=== PATIENT | female | born 1970 | race Caucasian/White ===

== ENCOUNTER → 2017-01-31 | Outpatient (CLI) | payer OTHER ==
[~2017-01-31] MED LIST: ASPI81TA28 PO; B-COTAB18 PO; CHOL1000 PO; LEVO100T7 PO; LISI-725 PO; METF750T PO; NIAC500T8 PO; VSNOPS OP
--- NOTE | 2017-02-02 12:34 | MAMMOGRAPHY REPORT ---
BILATERAL DIGITAL SCREENING MAMMOGRAM TOMOSYNTHESIS WITH CAD: 01/31/2017 CLINICAL HISTORY: Routine screening. Patient has no complaints. TECHNIQUE: Breast tomosynthesis in addition to standard 2D mammography was performed. Current study was also evaluated with a Computer Aided Detection (CAD) system. COMPARISON: Comparison is made to exams dated: 01/29/2016 mammogram, 01/27/2015 mammogram, 01/24/2014 m ammogram, 01/23/2013 mammogram, 01/21/2012 mammogram, and 01/11/2011 mammogram - [facility] enter. BREAST COMPOSITION: There are scattered areas of fibroglandular density in both breasts. FINDINGS: There is an 11 mm focal asymmetry in the upper outer anterior left breast for which additi onal spot compression tomosynthesis views and targeted ultrasound are recommended. There are benign-appearing round and rim calcifications in the right breast. No other suspicious mas s, architectural distortion or cluster of microcalcifications is seen. IMPRESSION: ACR BI-RADS CATEGORY 0: INCOMPLETE EVALUATION: NEED ADDITIONAL IMAGING EVALUATION The 11 mm focal asymmetry in the left breast needs additional evaluation. The patient will be called to schedule an appointment. Approximately 10% of breast cancers are not detected with mammography. A negative mammographic report should not delay biopsy if a clinically suggestive mass is present. Christel Jacob M.D. ay/:01/31/2017 16:49:33 Labeling Specialist: Bee GAYTAN(Rachael)(Mu)(BD), [facility] letter sent: Addl Imaging 0 BI-RADS Code: ACR BI-RADS Category 0: Incomplete Evaluation: Need Additional Imaging Evaluation
== END | disposition home or self-care (01) ==
LOC: C.MAMM 09:10
PROVIDERS: ATTEND Family Medicine
DX: Z12.31 Encounter for screening mammogram for malignant neoplasm of breast (principal); R92.8 Other abnormal and inconclusive findings on diagnostic imaging of breast

== ENCOUNTER → 2017-02-07 | Outpatient (CLI) | payer OTHER ==
--- NOTE | 2017-02-07 14:31 | MAMMOGRAPHY REPORT ---
UNILATERAL LEFT DIGITAL DIAGNOSTIC MAMMOGRAM TOMOSYNTHESIS AND TARGETED LEFT ULTRASOUND: 02/07/2017 CLINICAL HISTORY: 47-year-old woman called back from screening mammography for an 11mm focal asymmetr y in the upper outer anterior left breast. Family history of breast cancer = paternal grandmother an d aunt. TECHNIQUE: Spot compression left CC and MLO to the digital and tomosynthesis images were obtained. COMPARISON: Comparison is made to exams dated: 01/31/2017 mammogram, 01/29/2016 mammogram, 01/27/2015 ma mmogram, 01/24/2014 mammogram, 01/23/2013 mammogram, and 01/21/2012 mammogram - [facility] nter. BREAST COMPOSITION: There are scattered areas of fibroglandular density in the left breast. FINDINGS: Spot compression views and corresponding tomosynthesis images of the left breast demonstrat e persistence of a circumscribed benign-appearing low-density 10 x 11 x 12 mm mass in the upper outer anterior aspect of the breast. No associated architectural distortion or microcalcifications. Furt her evaluation with ultrasound was performed. Targeted ultrasound was performed in the upper outer quadrant of the left breast. In the 1:00 axis, 1 cm from the nipple, there is an oval parallel circumscribed anechoic benign simple cyst measuring 8 .9 x 4.0 x 11.2 mm. This correlates well in size, shape and location as the mammographic mass and is benign. No further workup is needed at this time. IMPRESSION: ACR BI-RADS CATEGORY 2: BENIGN, TARGETED ULTRASOUND ACR BI-RADS CATEGORY 2: BENIGN The 11 mm circumscribed mass in the upper outer anterior left breast correlates with a benign anechoi c simple cyst on ultrasound identified in the 1:00 axis. No further workup is needed at this time. Recommend return to annual screening mammography schedule. Approximately 10% of breast cancers are not detected with mammography. A negative mammographic report should not delay biopsy if a clinically suggestive mass is present. Christel Jacob M.D. ay/:02/07/2017 13:50:41 Blacksmith Assistant: Magalys SHORT)(Mu), [facility] letter sent: Normal 1/2 BI-RADS Code: ACR BI-RADS Category 2: Benign Ultrasound BI-RADS: ACR BI-RADS Category 2: Benign
== END | disposition home or self-care (01) ==
LOC: C.MAMM 13:17
PROVIDERS: ATTEND Family Medicine
DX: N60.02 Solitary cyst of left breast (principal); Z80.3 Family history of malignant neoplasm of breast

== ENCOUNTER → 2017-07-04 | Outpatient (CLI) | payer OTHER ==
--- NOTE | 2017-07-04 09:04 | DIAGNOSTIC IMAGING REPORT ---
SOFT TISS HEAD/NECK-THYROID CLINICAL HISTORY: 47 years-old Female with THYROID DISORDER. Follow-up study in a patient with thyroid nodules. History of a 5 mm right lower pole thyroid nodule COMPARISON: Thyroid ultrasound 07/14/2014 TECHNIQUE: Multiple real time sonographic images of the thyroid were obtained accessing yee scale appearance and color doppler flow. FINDINGS: MEASUREMENTS: Right lobe: 4.1 x 1.1 x 1.4 cm Left lobe: 4.5 x 1.0 x 1.5 cm Isthmus: 0.3 cm PARENCHYMA: Mildly heterogeneous. NODULES: The interpolar right thyroid is mildly heterogeneous with a ovoid solid slightly hypoechoic nodule measuring 1.0 x 0.5 x 0.4 cm. This demonstrates minimal peripheral increased echogenicity without shadowing suspicious for possible colloid or calcification. Shadowing calcification of the inferior right thyroid is noted, 2 mm. Previously noted hypoechoic inferior pole right thyroid nodule not definitely seen. No discrete left thyroid nodule identified. IMPRESSION: 1. Mildly heterogeneous thyroid parenchyma. Previously noted 5 mm hypoechoic nodule of the inferior right thyroid not identified. 2. Mildly hypoechoic nodule of the interpolar right thyroid measures 1.0 cm. Follow-up recommended. 3. No left thyroid nodule. The above report was generated using voice recognition software. It may contain grammatical, syntax or spelling errors. Electronically signed by: Elmer Huggins M.D. 07/04/2017 9:02 AM Dictated Date/Time: 07/04/2017 8:57 AM
== END | disposition home or self-care (01) ==
LOC: C.ULTR 08:22
PROVIDERS: ATTEND Family Medicine
DX: R07.0 Pain in throat (principal); E07.9 Disorder of thyroid, unspecified